=== PATIENT | female | born 1960 | race African-American/Black ===

== ENCOUNTER 2023-05-09 21:41 | Emergency (ER) | payer OTHER ==
[~2023-05-09] VITALS: Ht 165.1 cm; Wt 70.0 kg
[2023-05-09 21:49] VITALS: BP 185/151; PULSE 94; RESP 16; TEMP 98.2; O2SAT 100
== END 2023-05-10 05:41 | disposition home or self-care (01) ==
LOC: ER 21:41
DX: M54.50 Low back pain, unspecified (principal); I10 Essential (primary) hypertension; H40.9 Unspecified glaucoma
CPT/HCPCS: 99283